=== PATIENT | female | born 1990 | race Caucasian/White ===

== ENCOUNTER → 2020-08-04 15:48 | Outpatient (CLI) | payer OTHER, SELFPAY ==
--- NOTE | 2020-08-04 16:05 | BD_ITS ---
STUDY: DUAL ENERGY X-RAY ABSORPTIOMETRY / DXA REASON FOR EXAM: Female, 30 years old. Pat is 239.7# and 72.5 and quot;. Pat states Mcfp HRT/Estrogen for non developmental ovary issues. Primary Ovarian Failure. She states she does have periods infrequently. Takes Estrogen. Takes levothyroxin, calcium with vit C. Exercises moderately to a lot. TECHNIQUE: Bone Mineral Density (BMD) measurements of lumbar spine and bilateral hips were obtained. COMPARISON: None. FINDINGS: Lumbar Spine (L1-L4): g/cm2 (0.958) / T-score (-2.0) / Z-score (-2.0) Findings are suggestive of osteopenia with a moderate fracture risk. Left Femur Total: g/cm2 (0.896) / T-score (-0.9) / Z-score (-0.8) Left Femoral Neck: g/cm2 (1.027) / T-score (-0.1) / Z-score (0.0) Right Femur Total: g/cm2 (0.870) / T-score (-1.1) / Z-score (-1.0) Right Femoral Neck: g/cm2 (1.034) / T-score (0.0) / Z-score (0.1) BD/Dexa Bone Density Study IMPRESSION: The patient is considered osteopenic as outlined below according to World [employer] Organization (WHO) criteria with a low fracture risk. Reference Information: The T-score is the number of standard deviations above or below the standard which is normal for young adults at their peak bone mineral density. The World Health Organization (WHO) interprets the T-scores as follows: Above -1 Normal bone density Between -1 and -2.5 Osteopenia Equal to / or below -2.5 Osteoporosis As a practical clinical guideline, osteopenia may be graded as follows: Mild -1 through -1.5 Moderate -1.6 through -2.0 Severe -2.1 through -2.4 The Z-score is the number of standard deviations above or below age-matched controls. A Z-score of less than -1.5 would be considered abnormal. References: 1. NIH Osteoporosis and Related Bone Diseases www osteo.org 2. International Society for Clinical Densitometry www iscd.org 3. National Osteoporosis Foundation www nof.org Electronically Signed: Eulogio Quinn, at 9:41 EST , Service support ,
== END ==
PROVIDERS: Referring Provider Obstetrics & Gynecology; Visit Provider Obstetrics & Gynecology
DX: E28.39 Other primary ovarian failure (principal)
CPT/HCPCS: 77080